=== PATIENT | female | born 1955 | race Caucasian/White ===

== ENCOUNTER 2018-07-01 11:35 | Emergency (ER) | payer OTHER ==
[~2018-07-01] VITALS: Ht 162.6 cm; Wt 70.3 kg
[2018-07-01] MEDS ORDERED: HYDROCODONE-AP1 EAC6 PO (13:39)
[2018-07-01 13:48] VITALS: BP 130/84
== END 2018-07-01 13:49 | disposition home or self-care (01) ==
LOC: ER 11:35
DX: S52.592A Other fractures of lower end of left radius, initial encounter for closed fracture (principal); S63.255A Unspecified dislocation of left ring finger, initial encounter; Z90.49 Acquired absence of other specified parts of digestive tract; W10.9XXA Fall (on) (from) unspecified stairs and steps, initial encounter; Y92.89 Other specified places as the place of occurrence of the external cause; Y93.89 Activity, other specified; Y99.8 Other external cause status